=== PATIENT | male | born 1950 | race Caucasian/White ===

== ENCOUNTER 2017-05-09 05:52 | Inpatient (IN) ==
[2017-05-07 13:46] LABS: Basophils # 0.1 10*3/uL (0.0-0.2); Eosinophils # 0.1 10*3/uL (0.0-0.87); Eosinophils % 1.3 % (0.00-10.9); Hematocrit 48.4 VOL% (42.0-52.0); Hemoglobin 17.4 GM/DL (14.0-18.0); Immature Granulocytes % 0.5 %; Immature Granulocytes Absolute 0.04 #; Lymphocytes # 2.9 10*3/uL (1.4-4.0); Lymphocytes % 32.8 % (21.2-54.2); Mean Corpuscular Hemoglobin 32 PG (27-34); Mean Corpuscular Volume 88.6 FL (87-102); Mean Platelet Volume 9.5 FL (9.6-12.0); Monocytes # 0.6 10*3/uL (0.11-0.8); Monocytes % 7.1 % (1.7-12.7); Neutrophils % 57.3 % (38.7-73.9); Platelet Count 211 T/CUMM (130-400); Red Blood Count 5.46 MC/CUMM (3.8-5.5); Red Cell Distribution Width 12.9 % (9.3-17.3); White Blood Count 8.7 T/CUMM (4-12)
[2017-05-07 14:10] LABS: Calcium 8.7 MG/DL (8.5-10.1); Osmolality,Calculated 282.5 MOS/KG (273-304); Potassium 3.6 MMOL/L (3.5-5.1)
--- NOTE | 2017-05-07 14:13 | EKG Report ---
Stationary ECG Study [facility] Test Date: 05/07/2017 2:09:59 PM Pat Name: OLIVER DENT Department: Room: Gender: M Agricultural Agent: Merlyn 05-08-17 : 1950 Requested by: Salvatore Fernandez Order Number: [id number] Reading MD: JEMAL LORENZ Intervals [place] Rate: 76 P: 56 MN: 229 QRS: 4 QRSD: 133 T: 266 QT: 458 QTc: 488 Interpretive Statements SINUS RHYTHM WITH FIRST DEGREE AV BLOCK RIGHT BUNDLE BRANCH BLOCK T WAVE ABNORMALITY, POSSIBLE ANTEROLATERAL ISCHEMIA T WAVE ABNORMALITY, POSSIBLE INFERIOR ISCHEMIA Electronically Signed On 05-07-17 20:58:43 CDT by JEMAL LORENZ [email or web address]
--- NOTE | 2017-05-07 15:02 | XRay Report ---
2 view chest 05/07/2017 1:31 PM Indication: Preoperative examination Comparison: Not available Findings: Cardiomediastinal contours are normal. Small calcified granuloma within the right lung base. Lungs are otherwise clear. No acute osseous abnormalities. Visualized upper abdomen demonstrates no acute pathology. Impression: No acute cardiopulmonary findings PROCEDURE INTERPRETED AT [facility] DEPARTMENT OF RADIOLOGY Final Report Signed by: Pan Fajardo
--- NOTE | 2017-05-07 15:22 | XRay Report ---
History: Abdominal pain post sigmoidoscopy Date: 05/07/2017 Study: Flat and erect abdomen Comparison exam: No previous There is no evidence of pneumoperitoneum. The bowel is pattern is nonspecific without obstruction or gross mass lesion. There is a 7.7 mm nodular calcification overlying the lower right renal shadow as well as 3.8 mm calcification overlying the lower right renal shadow compatible with nephrolithiasis. There is mild to moderate lumbar spondylosis. Surgical clips overlie the right upper abdomen compatible with prior cholecystectomy. Impression: No evidence of pneumoperitoneum. Nonobstructive bowel gas pattern. Suspect bilateral nephrolithiasis PROCEDURE INTERPRETED AT [facility] DEPARTMENT OF RADIOLOGY Final Report Signed by: Dr. Angelica Joseph
[~2017-05-09 05:52] MED LIST: ALVIMOPAN 12 MG CAPSULE PO ONE
[2017-05-09] MEDS ORDERED: BUPIVACAINE MPF 0.25% /EPI 30 ML VIAL ONE (06:34)
[2017-05-09] MEDS ORDERED: LIDOCAINE 1%/EPI INJ 20 ML VIAL ONE (06:34)
[2017-05-09] MEDS ORDERED: ALVIMOPAN 12 MG CAPSULE ONE (06:38)
[2017-05-09] MEDS ORDERED: SODIUM CHLORIDE 0.9% 100 ML IV ONE (06:38)
[2017-05-09] MEDS: LACTATED RINGERS 1,000 ML IV SCH (07:00)
[2017-05-09] MEDS ORDERED: cefOXitin 1,000 MG in SODIUM CHLORIDE 0.9% 100 ML IV ONE (07:00)
[2017-05-09] MEDS ORDERED: GLYCOPYRROLATE 0.4 MG/2 ML VIAL ONE (07:08)
[2017-05-09] MEDS ORDERED: LIDOCAINE 100 MG/5 ML SYRINGE ONE (07:08)
[2017-05-09] MEDS ORDERED: PROPOFOL 200 MG/20 ML VIAL IV ONE (07:08)
[2017-05-09] MEDS ORDERED: KETOROLAC 30 MG/1 ML VIAL ONE (07:08)
[2017-05-09] MEDS ORDERED: NEOSTIGMINE 10 MG/10 ML VIAL ONE (07:08)
[2017-05-09] MEDS ORDERED: ONDANSETRON 4 MG/2 ML VIAL ONE (07:08)
[2017-05-09] MEDS ORDERED: LIDOCAINE 2% TOP JELLY 20 ML VIAL INTRAURETH ONE (07:35)
--- NOTE | 2017-05-09 07:45 | Urology Consultation ---
Assessment and Plan - Time spent with patient Time spent with patient: Less than 30 minutes (1) Acquired phimosis Status: Acute Assessment and plan: Wood catheter placed by urology. Maintain Wood catheter until patient is ambulatory, and medically indicated by general surgery. Patient can follow-up in my clinic if he would like circumcision. Please call with any concerns or questions. I will be happy to follow-up, otherwise I will not follow him. Current Visit: Yes History of Present Illness - Data of Consult Patient: new to practice Consult date: 05/09/17 Requesting Physician: Salvatore Fernandez III. - Consult Narrative History of present illness: Mr. Marie is a 66 year old male who is brought to the OR for planned colon resection. He is uncircumcised, and has phimosis. The nurse was unable to place the Wood catheter after considerable attempts. I was consulted for Wood catheter placement by Dr. Fernandez, as it is needed for his robotic procedure. No history is available from the patient, as he is intubated and prepped for surgery. History obtained from the nursing staff, and medical records. CC: Salvatore Fernandez III., Unable to Place Wood due to the tight foreskin - Home Medications and Allergies Home Medications: Home Medications Medication Instructions Recorded Confirmed Type Gabapentin 300 mg PO DIRECTED PRN 05/06/17 05/09/17 History Verapamil HCl [Verapamil ER Cap] 360 mg PO BEDTIME 05/06/17 05/09/17 History Insulin Lispro Prot/Lisp 50/50 75 unit SUBCUT BID 05/09/17 05/09/17 History [HumaLOG Mix 50/50] Allergies/Adverse Reactions: Allergies Allergy/AdvReac Type Severity Reaction Status Date / Time povidone-iodine AdvReac Verified 05/07/17 13:31 [From Betadine] soap [From Betadine] AdvReac Verified 05/07/17 13:31 Medical,Surgical,& Family Hx - Medical History Cardio: History of: Hypertension Neurology: History of: Peripheral Neuropathy (HANDS AND FEET.) No history of: Seizures HEENT: History of: Eye Problem (GLASSES) Endocrine: History of: Diabetes Mellitus (IDDM) Respiratory: History of: Obstructive Sleep Apnea (CPAP), Respiratory Problems ( FLU VAC-YES 2015; PNEU VAC- YES.) Renal: No history of: Renal Problems Genitourinary: History of: Kidney Stones, Prostate Problems (SLIGHTLY ENLARGED.) No history of: Bladder Problem Gastrointestinal: History of: Polyps, Gastrointestinal Cancer Musculoskeletal: History of: Back/Neck Problems (L5 ARTHRITIS) Hematology: No history of: Blood Transfusion Reaction Other: History of: Cancer (COLON CA.), MRSA (BILATERAL FEET.) No history of: Anesthesia Reactions - Surgical History Cardiac Surgeries: Patient Denies: Cardiac Catheterization HEENT Surgeries: Surgical HX of: Eye Surgery (LASER EYE SURGERY BILATERAL.), Tonsilectomy & Adenoidectomy Abdominal Surgeries: Surgical HX of: Appendectomy (?), Cholecystectomy, Colonoscopy, Hernia Repair (UMBILICAL HERNIA REPAIR) Patient denies: EGD Orthopedic Surgeries: Surgical HX of;: Orthopedic Surgery (LEFT ACHILIS REPAIR.) - Social History Smoking Status: Never smoker Frequency of Alcohol Use: None Type of Drug Use: None ROS unobtainable: due to endotracheal tube Exam - Constitutional Vitals: Period Temp Pulse Resp BP Sys/Townsend Pulse Ox Last 24 Hr 98.6 F 68 18 146/82 96 General appearance: no acute distress - Head Head exam: Present: normocephalic, atraumatic - ENT ENT exam: Present: other (ET tube in place) - Neck Neck exam: Present: normal inspection - Respiratory Respiratory exam: Present: other (Ventilated breath) - Cardiovascular Cardiovascular exam: Present: regular rate and rhythm, other (Normal sinus rhythm on monitor) - GI/Abdominal GI/Abdominal exam: Present: soft, other (Surgical scar noted) - Genitourinary Genitourinary: foreskin does not retract, other (5 myotic foreskin, unable to retract) - Extremities Exam Extremities exam: Present: normal capillary refill, other (SCDs in place) - Neurological Exam Neurological exam: Present: other (Paralyzed and sedated) - Psychiatric Psychiatric exam: Present: other (Paralyzed and sedated) - Skin Skin exam: Present: warm, dry Results - Labs CBC & BMP: 05/07/17 13:38 05/07/17 13:38 Lab Results: I have reviewed the past 24 hour labs Procedures - Catheter Insertion (Urinary) Does patient have: other (Phimosis) Prophylactic antibiotics given: Yes (Antibiotics for colon surgery) Bladder Scan/Ultrasound used before catheterization: No Type of catheter inserted: 2 way Catheter Angolan Size: 16 Catheter Balloon Size (mLs): 10 Topical anesthesia used: No Results: unable to pass, consulted (Able to Place Wood with manipulation of foreskin. Immediate drainage of clear urine after placement.), urine sent for UA/ C&S Patient tolerated procedure: well
[2017-05-09] MEDS ORDERED: ONDANSETRON 4 MG/2 ML VIAL IV PRN (10:55)
--- NOTE | 2017-05-09 10:55 | Operative Note ---
Date of procedure: 05/09/17 Pre-op diagnosis: Sigmoid colon cancer Post-op diagnosis: same Procedure: Robotic sigmoid colectomy with 28 mm stapled EEA anastomosis(22) 2. Complete mobilization of splenic flexure Findings and technique: After informed consent was obtained patient was brought the operating room placed in supine position. After successful induction of general anesthesia the patient was positioned in a modified lithotomy position in Johny stirrups his pressure points padded. A Wood catheter had to be inserted by urology because of phimosis. The abdomen and perineum were prepped and draped in usual sterile fashion and local anesthesia infiltrated in the right lower quadrant. An open technique was used in the peritoneal cavity in this patient who had had previous hernia repairs and is midline and no longer had an umbilicus. I entered the peritoneal cavity and inserted a Jamie cannula. With the laparoscope in place I inserted additional robotic ports in the mid right abdomen and right upper quadrant. All of this was done under direct camera vision. Patient was position with his left side tilted upwards and in some Trendelenburg. The robot was docked and adhesions between the omentum and the abdominal midline were taken down with careful dissection removing omentum adherent behind his previous hernia repair site. Once his large thick omentum was freed up it was retracted out of the pelvis. There were extensive adhesions between the sigmoid colon and the lateral abdominal wall. These adhesions were tediously taken down exposing the tattooed area at the mid sigmoid colon. I then mobilized the descending colon up to the level of the splenic flexure which was mobilized robotically. With the colon fully mobilized identified the left ureter and gonadal vessels and stayed medial to the structures. I dissected down into the pelvis to his peritoneal reflection which was very deep. I elected to transect the distal sigmoid in the pelvis probably about 10 cm past the tattooed area. The mesentery was dissected free and redundant skin folds of the colon straightened out which was very tedious in this patient. The colon was transected with a stapling device and the mesocolon was then divided with the vessel sealer gradually. This was very difficult because the patient's mesocolon was probably about 3 cm thick. Large amount of intra-abdominal fat and the patient's retroperitoneum and mesentery made all of the dissection much more difficult. The mesentery was divided taking the generous specimen of mesocolon especially proximal and adjacent to the polypectomy site and I dissected about 10 cm proximal to the polypectomy site in the mesentery. I then pulled the colon up through the right lower quadrant port site which was enlarged and a wound protector placed in the defect. The colon was pulled up into this location and I had marked the planned point of transection trickle poorly with a marking pen and we transected at this point with a pursestring device and scissors. The bowel appeared to be healthy and well-perfused at this point and a bullet from the EEA placed in the end of the bowel. The bowel was returned back into the peritoneal cavity and the right lower quadrant defect closed with running 0 Monocryl suture. Following this the EEA stapler was passed transanally. Prior to passing the stapler I passed a 25 and 28 mm sizer and then was able to pass the EEA. A 28 mm anastomosis was performed transanally and the EEA removed and there was no bleeding in the rectum and this was then leak tested under water and there was no bubbling with the colon and rectum distended with air. The anastomosis was coated with Tisseel tissue sealant. The anastomosis was under no tension and the bowel laid without any tension prior to doing the anastomosis in the pelvis with no resistance. A 10 mm KYLE drain was placed in the pelvis and the ports were removed and the incisions closed with skin clips. He appeared to tolerate the procedure well. This was a much more difficult procedure than usual because of the large amount of intra-abdominal fat and adhesions and previous hernia surgery which added to the complexity the case and essentially doubled the usual expected operative time. He had no apparent complications and appeared to tolerate procedure well. Anesthesia: GETA, local Surgeon / Physician: Salvatore Fernandez III. Full Stack Developer: Gonzalo Barrera Estimated blood loss: other (75 mL) Specimens: other (Sigmoid colon) Condition: stable Disposition: PACU Results - Labs CBC & BMP: 05/07/17 13:38 05/07/17 13:38 Discharge Plan - Discharge Medications No Action Gabapentin 300 mg PO DIRECTED PRN PRN Reason: NERVES Verapamil HCl [Verapamil ER Cap] 360 mg PO BEDTIME Insulin Lispro Prot/Lisp 50/50 [HumaLOG Mix 50/50] 75 unit SUBCUT BID - Follow Up or Referral - Forms/Instructions
[2017-05-09] MEDS ORDERED: DEXTROSE 50% 25 GM/50 ML SYRINGE IV PRN (10:59)
[2017-05-09] MEDS ORDERED: GLUCAGON 1 MG VIAL IM PRN (10:59)
[2017-05-09] MEDS ORDERED: SEVOFLURANE 1 UNIT/15 MINUTE INH ONE (11:12)
[2017-05-09] MEDS ORDERED: MIDAZOLAM 2 MG/2 ML VIAL ONE (11:13)
[2017-05-09] MEDS ORDERED: fentaNYL 100 MCG/2 ML VIAL ONE ×2 (11:13)
[2017-05-09 11:18] LABS: Apearance,Urine CLOUDY (Clear); Bacteria,Urine Moderate /HPF (Few); Bilirubin,Urine Negative (Negative); Blood, Urine Negative (Negative); Glucose,Urine (UA) 50 mg/dL (Negative); Ketones,Urine 20 mg/dL (Negative); Mucus,Urine Few /LPF (Occasional); Nitrite,Urine Negative (Negative); Protein,Urine >=500 MG/DL; Urine Color Yellow (Yellow); Urine Specific Gravity 1.014 (1.001-1.035); WBC,Urine 2 /HPF (0-6)
[2017-05-09] MEDS: INSULIN REGULAR 100 UNIT/ML SUBCUT SCH ×2 (12:50→17:18)
[2017-05-09] MEDS: DEXTROSE 5% LACTATED RINGERS 1,000 ML IV SCH (13:09)
[2017-05-09 13:32] LABS: Hematocrit 43.1 VOL% (42.0-52.0); Hemoglobin 15.6 GM/DL (14.0-18.0)
[2017-05-09] MEDS: MORPHINE 2 MG/1 ML SYRINGE IV PRN ×2 (16:43→21:02)
[2017-05-09 19:38] LABS: Hematocrit 42.1 VOL% (42.0-52.0); Hemoglobin 15.1 GM/DL (14.0-18.0)
[2017-05-09] MEDS: VERAPAMIL 360 MG PO SCH (20:53)
[2017-05-09] MEDS: ALVIMOPAN 12 MG CAPSULE PO SCH (20:53)
[2017-05-09] MEDS: ENOXAPARIN 40 MG/0.4 ML SYRINGE SUBCUT SCH (20:59)
[2017-05-10] MEDS: DEXTROSE 5% LACTATED RINGERS 1,000 ML IV SCH ×2 (01:05→08:37)
[2017-05-10] MEDS: INSULIN REGULAR 100 UNIT/ML SUBCUT SCH ×4 (01:05→17:59)
[2017-05-10] MEDS: MORPHINE 2 MG/1 ML SYRINGE IV PRN ×2 (04:57→20:39)
[2017-05-10 06:24] LABS: Hemoglobin 14.6 GM/DL (14.0-18.0)
[2017-05-10 06:25] LABS: Basophils % 0.4 % (0.0-0.8); Eosinophils % 0.3 % (0.00-10.9); Hematocrit 41.4 VOL% (42.0-52.0); Hemoglobin 14.5 GM/DL (14.0-18.0); Immature Granulocytes % 0.4 %; Immature Granulocytes Absolute 0.04 #; Lymphocytes # 1.7 10*3/uL (1.4-4.0); Lymphocytes % 18.6 % (21.2-54.2); Mean Corpuscular Hemoglobin 32 PG (27-34); Mean Corpuscular Volume 89.8 FL (87-102); Mean Platelet Volume 10.4 FL (9.6-12.0); Monocytes # 0.7 10*3/uL (0.11-0.8); Monocytes % 7.8 % (1.7-12.7); Neutrophils # 6.7 10*3/uL (1.4-7.4); Neutrophils % 72.5 % (38.7-73.9); Platelet Count 174 T/CUMM (130-400); Red Blood Count 4.61 MC/CUMM (3.8-5.5); Red Cell Distribution Width 12.9 % (9.3-17.3); White Blood Count 9.3 T/CUMM (4-12)
[2017-05-10 07:00] LABS: Calcium 8.6 MG/DL (8.5-10.1); Osmolality,Calculated 286.7 MOS/KG (273-304); Potassium 3.2 MMOL/L (3.5-5.1)
[2017-05-10] MEDS: PANTOPRAZOLE 40 MG TABLET PO SCH (08:34)
[2017-05-10] MEDS: LACTATED RINGERS 1,000 ML IV SCH (08:36)
[2017-05-10] MEDS: ALVIMOPAN 12 MG CAPSULE PO SCH ×2 (08:36→20:39)
--- NOTE | 2017-05-10 11:26 | Event Note ---
This patient is postoperative day #1 after robotic assisted laparoscopic sigmoid colectomy for malignant polyp in the sigmoid colon on 05/09/2017. He had no events overnight. He is tolerating full liquid diet with no nausea or vomiting. He has not passed gas or had a bowel movement yet. He denies any belching or nausea. He has not been I walk in the hallway yet. He still has a Wood catheter which was placed by urology for difficult cannulation from nursing in the perioperative period. We will remove his Wood catheter and Hep- Lock his IV fluids. Encourage ambulation and continue full liquid diet today. I offered the patient some regular food but he would like to continue full liquids for now. We will replete his potassium and repeat his chemistry in the morning. Discontinue Wood catheter and increase activity.
--- NOTE | 2017-05-10 12:42 | Anesthesia Post-Op ---
Anesthesia Post OP - Post Ansesthetic Evaluation Patient seen in post op: Yes Resp: within normal limits CV: within normal limits Mental: within normal limits Temp: within normal limits [id number]: within normal limits Nausea and Vomiting: within normal limits Pain: within normal limits
[2017-05-10] MEDS: POTASSIUM CHLORIDE RIDER 10 MEQ in PREMIX 1 EACH IV SCH ×6 (12:49→22:29)
[2017-05-10] MEDS: ENOXAPARIN 40 MG/0.4 ML SYRINGE SUBCUT SCH (20:39)
[2017-05-10] MEDS: VERAPAMIL 360 MG PO SCH (20:40)
[2017-05-11] MEDS: INSULIN REGULAR 100 UNIT/ML SUBCUT SCH ×4 (00:20→17:08)
[2017-05-11] MEDS: POTASSIUM CHLORIDE RIDER 10 MEQ in PREMIX 1 EACH IV SCH (01:13)
[2017-05-11 06:56] LABS: Calcium 8.6 MG/DL (8.5-10.1); Magnesium 1.8 MG/DL (1.8-2.4); Osmolality,Calculated 280.7 MOS/KG (273-304); Potassium 3.3 MMOL/L (3.5-5.1)
[2017-05-11 08:07] LABS: Basophils # 0.1 10*3/uL (0.0-0.2); Basophils % 0.7 % (0.0-0.8); Eosinophils # 0.1 10*3/uL (0.0-0.87); Eosinophils % 1.5 % (0.00-10.9); Hematocrit 39.7 VOL% (42.0-52.0); Hemoglobin 14.4 GM/DL (14.0-18.0); Immature Granulocytes % 0.4 %; Immature Granulocytes Absolute 0.03 #; Lymphocytes # 1.9 10*3/uL (1.4-4.0); Lymphocytes % 22.6 % (21.2-54.2); Mean Corpuscular HGB Conc 36.3 GM/DL (32-36); Mean Corpuscular Hemoglobin 33 PG (27-34); Mean Corpuscular Volume 89.6 FL (87-102); Mean Platelet Volume 10.3 FL (9.6-12.0); Monocytes # 0.7 10*3/uL (0.11-0.8); Monocytes % 8.3 % (1.7-12.7); Neutrophils # 5.5 10*3/uL (1.4-7.4); Neutrophils % 66.5 % (38.7-73.9); Platelet Count 166 T/CUMM (130-400); Red Blood Count 4.43 MC/CUMM (3.8-5.5); Red Cell Distribution Width 12.7 % (9.3-17.3); White Blood Count 8.2 T/CUMM (4-12)
--- NOTE | 2017-05-11 08:22 | Event Note ---
He feels well postoperative day #2. He is ambulating in the room and is actually had a small bowel movement and flatus. He has had no nausea or vomiting. He had low-grade temperature last night but has no abdominal pain. His abdomen appears benign and there is serosanguineous drainage in his KYLE drain. I suspect that his temperature is pulmonary in origin. I will recheck lab.
[2017-05-11 08:34] LABS: Calcium 8.6 MG/DL (8.5-10.1); Potassium 3.9 MMOL/L (3.5-5.1)
[2017-05-11] MEDS: PANTOPRAZOLE 40 MG TABLET PO SCH (08:40)
[2017-05-11] MEDS: ALVIMOPAN 12 MG CAPSULE PO SCH ×2 (08:40→21:12)
[2017-05-11] MEDS: MORPHINE 2 MG/1 ML SYRINGE IV PRN ×2 (09:29→15:06)
[2017-05-11] MEDS: ENOXAPARIN 40 MG/0.4 ML SYRINGE SUBCUT SCH (21:12)
[2017-05-11] MEDS: VERAPAMIL 360 MG PO SCH (21:12)
[2017-05-12] MEDS: INSULIN REGULAR 100 UNIT/ML SUBCUT SCH ×3 (00:03→11:53)
--- NOTE | 2017-05-12 06:58 | Event Note ---
He feels well. He had a normal bowel movement. He is tolerating liquids and has no nausea or vomiting. He is afebrile with stable vital signs and had a normal white blood cell count yesterday. We will advance his diet. He may be ready for discharge later today or tomorrow.
[2017-05-12] MEDS: ALVIMOPAN 12 MG CAPSULE PO SCH (09:22)
[2017-05-12] MEDS: PANTOPRAZOLE 40 MG TABLET PO SCH (09:22)
--- NOTE | 2017-05-12 11:16 | Discharge Summary ---
Hospital Course - Hospital Course Hospital Course: Patient is a 66-year-old male admitted for robotic sigmoid colectomy with complete mobilization of the splenic flexure due to sigmoid colon cancer. Urology consultation was obtained prior to surgery asked the nurse was unable to pass the Yeung catheter secondary to phimosis. Urology was able to manipulate the foreskin and place a Yeung catheter; recommendation to follow-up in the outpatient clinic to consider circumcision. Subsequently, the patient progressed with his oral intake appropriately and regaining bowel function with passing both flatus and bowel movement. He was voiding without difficulty postoperatively as well. He did have acute kidney injury which responded to IV fluids and normalization of his creatinine. Hyperkalemia was noted which also resolved. He was hyperglycemic much of this today, but his home medications were being held secondary to possible hypoglycemia and he was on sliding scale insulin. His home medications restarted and the patient reports blood glucose levels are well controlled in the 150s which she checks twice daily at home. His KYLE drain was discontinued on the day of discharge. He was provided with postoperative analgesics and follow-up appointments with Drs. Viveros and Jim. He was discharged home in good condition. Pathology pending at the time of discharge Diagnosis - Discharge Diagnosis (1) Cancer of sigmoid colon Status: Acute (2) Acute kidney injury Status: Acute (3) Hypokalemia Status: Acute (4) Hyperglycemia due to type 2 diabetes mellitus Status: Acute (5) Acquired phimosis Status: Acute Specialty Discharge - Follow Up or Referrals Follow up with: Salvatore Fernandez III., MD [Physician] - 05/26/17 10:00 am Cirilo Viveros MD [Physician] - 05/29/17 9:30 am (2-4 weeks to consider circumcision ) Discharge Plan - Discharge Data Disposition: Disch To Home/Self Care Condition at Discharge: Stable Discharge Diet: diabetic diet Activity: no lifting (> 10lb) Hygiene: may shower Contact your physician if you experience:: fever over 101, Difficulty voiding, Redness or swelling, Nausea/Vomiting, Shortness of breath, Bleeding, pain uncontrolled by pain medications Wound / Dressing Care Instructions: -KYLE drain site: keep dressing in place and dry x 48 hrs. -Surgical incisions: keep clean, dry and covered. -Do not soak or submerge wounds. Pat dry. - Discharge Medications New HYDROcodone/ACETAMIN 7.5-325 [[place]on 7.5-325] 1 tablet PO Q4H PRN #30 tablet PRN Reason: Pain Moderate To Severe (4-10) Continue Gabapentin 300 mg PO QID Verapamil HCl [Verapamil ER Cap] 360 mg PO BEDTIME Insulin Lispro Prot/Lisp 50/50 [HumaLOG Mix 50/50] 75 unit SUBCUT BID - Follow Up or Referral Follow Up: Salvatore Fernandez III., MD [Physician] - 05/26/17 10:00 am Cirilo Viveros MD [Physician] - 05/29/17 9:30 am (2-4 weeks to consider circumcision ) - Forms/Instructions Instructions: Phimosis (GEN), Colectomy (DC) Additional Discharge Instructions: Hospital f/u with PCP in 7-10 days regarding hyperglycemia. Exam - Constitutional Vitals: Period Temp Pulse Resp BP Sys/Townsend Pulse Ox Last 24 Hr 97.0 F-98.7 F 59-68 16-20 133-151/66-87 92-99 General appearance: no acute distress - Eye Eye exam: Absent: scleral icterus - Respiratory Respiratory exam: Present: clear to auscultation bilaterally - Cardiovascular Cardiovascular exam: Present: regular rate and rhythm - GI/Abdominal GI/Abdominal exam: Present: hypoactive bowel sounds, tenderness (appropriate p/ o tenderness about incisions; surgical incisions c/d/i), soft. Absent: distended, firm - Neurological Exam Neurological exam: Present: alert, oriented X3 - Psychiatric Psychiatric exam: Present: normal affect, normal mood - Skin Skin exam: Present: normal color Discharge Results Procedures and tests throughout hospitalization: 1. Robotic sigmoid colectomy with complete mobilization of splenic flexure for sigmoid colon cancer on 05/09/[address] Salvatore Fernandez 2. Pathology of above pending at time of discharge 3. Mobilization of foreskin for yeung catheter placement with Dr. Cirilo Viveros on 05/09/2017 Labs on day of discharge: Labs from last 24 hours 05/12/17 05/12/17 05/11/17 11:01 05:50 23:56 POC Glucose 301 H 198 H 196 H 05/11/17 16:46 POC Glucose 268 H - Imaging and Cardiology Procedure: Chest x-ray: image reviewed by me, report reviewed by me, KUB x-ray: image reviewed by me, report reviewed by me (bilateral nephrolithiasis incidentally noted) DS: Provider Date of admission: 05/09/17 10:55 Primary care physician: Juliana Henriquez Attending physician on admission: Salvatore Fernandez III., Consults: Urology Dr. Cirilo Viveros Discharging clinician: Ashanti Edward PA-C
[2017-05-12 16:05] VITALS: BP 130/71
--- NOTE | 2017-05-12 17:16 | Pathology Report from [facility] ---
[facility] ACCESSION # : [id number] PATIENT NAME : Oliver Dent. ORDERING DR : IESHA MONTOYA III, MD CLINICAL HX: Colon mass POST-OP DX: Same SPECIMEN INFO: #1 Sigmoid colon #2 Donuts GROSS DESCRIPTION: #1 Received fresh labeled with the patients name OLIVER DENT is a segment of colon (9.0 x 2.5 cm) with one end opened and the opposite end closed. Blue ink is present at the open end indicating the proximal margin. Opening the colon reveals an ulcerated area (0.5 x 0.3 cm) possibly representing a previous biopsy site which is marked with black dye and comes within 4.0 cm of the proximal margin and within 2.5 cm of the distal margins. Adjacent to the ulceration, are two additional possible biopsy sites, both of which come within 4.0 cm of the proximal margin. No distinct masses are grossly appreciated. Sections submitted: 1A proximal margin, 1B distal margin , 1C mesenteric margin, 1D ulceration, 1E and 1F possible biopsy site, 1G&1H- Possible lymph nodes.#2 Received fresh labeled with the patients name OLIVER DENT and #2 consists of two ring-shaped fragments of pink-alford mucosal tissue measuring 3.0 x 2.8 cm in aggregate. Spares Scheduler sections submitted in cassette #2. DIAGNOSIS FOR OLIVER DENT: #1 SIGMOID COLON, PARTIAL COLECTOMY: Benign colonic mucosa, negative for residual carcinoma (biopsy site present). Benign lymph nodes (0/10). COLLECTED DATE: 05/09/2017 [facility] REPORT DATE: 05/12/2017 ELECTRONICALLY SIGNED BY: Mary Tena M.D. 05/12/2017 - 12:07:22 [place]
[2017-05-12] MEDS ORDERED: INSULIN LISPRO SUBCUT SCH (21:00)
[2017-05-12] MEDS ORDERED: INSULIN LISPRO PROTAMINE SUBCUT SCH (21:00)
--- NOTE | 2017-05-13 11:17 | Pathology Report from [facility] ---
[facility] ACCESSION # : [id number] PATIENT NAME : Oliver Dent. ORDERING DR : IESHA MONTOYA III, MD CLINICAL HX: Colon mass POST-OP DX: Same SPECIMEN INFO: #1 Sigmoid colon #2 Donuts GROSS DESCRIPTION: #1 Received fresh labeled with the patients name OLIVER DENT is a segment of colon (9.0 x 2.5 cm) with one end opened and the opposite end closed. Blue ink is present at the open end indicating the proximal margin. Opening the colon reveals an ulcerated area (0.5 x 0.3 cm) possibly representing a previous biopsy site which is marked with black dye and comes within 4.0 cm of the proximal margin and within 2.5 cm of the distal margins. Adjacent to the ulceration, are two additional possible biopsy sites, both of which come within 4.0 cm of the proximal margin. No distinct masses are grossly appreciated. Sections submitted: 1A proximal margin, 1B distal margin , 1C mesenteric margin, 1D ulceration, 1E and 1F possible biopsy site, 1G&1H- Possible lymph nodes.#2 Received fresh labeled with the patients name OLIVER DENT and #2 consists of two ring-shaped fragments of pink-alford mucosal tissue measuring 3.0 x 2.8 cm in aggregate. Senior Director Of [employer] sections submitted in cassette #2. DIAGNOSIS FOR OLIVER DENT: #1 SIGMOID COLON, PARTIAL COLECTOMY: Benign colonic mucosa, negative for residual carcinoma (biopsy site present). Benign lymph nodes (0/10). COLLECTED DATE: 05/09/2017 [facility] REPORT DATE: 05/12/2017 SUPPLEMENTAL TEXT: #2 Colon donuts: Benign colonic mucosa, negative for tumor. SUPPLEMENTAL DATE: 05/13/2017 ELECTRONICALLY SIGNED BY: Mary Tena M.D. 05/12/2017 - 12:07:22 [place]
--- NOTE | 2017-05-13 18:17 | Pathology Report from [facility] ---
[facility] ACCESSION # : [id number] PATIENT NAME : Oliver Dent. ORDERING DR : IESHA MONTOYA III, MD CLINICAL HX: Colon mass POST-OP DX: Same SPECIMEN INFO: #1 Sigmoid colon #2 Donuts GROSS DESCRIPTION: #1 Received fresh labeled with the patients name OLIVER DENT is a segment of colon (9.0 x 2.5 cm) with one end opened and the opposite end closed. Blue ink is present at the open end indicating the proximal margin. Opening the colon reveals an ulcerated area (0.5 x 0.3 cm) possibly representing a previous biopsy site which is marked with black dye and comes within 4.0 cm of the proximal margin and within 2.5 cm of the distal margins. Adjacent to the ulceration, are two additional possible biopsy sites, both of which come within 4.0 cm of the proximal margin. No distinct masses are grossly appreciated. Sections submitted: 1A proximal margin, 1B distal margin , 1C mesenteric margin, 1D ulceration, 1E and 1F possible biopsy site, 1G&1H- Possible lymph nodes.#2 Received fresh labeled with the patients name OLIVER DENT and #2 consists of two ring-shaped fragments of pink-alford mucosal tissue measuring 3.0 x 2.8 cm in aggregate. Rehabilitation Center Manager sections submitted in cassette #2. DIAGNOSIS FOR OLIVER DENT: #1 SIGMOID COLON, PARTIAL COLECTOMY: Benign colonic mucosa, negative for residual carcinoma (biopsy site present). Benign lymph nodes (0/10). COLLECTED DATE: 05/09/2017 [facility] REPORT DATE: 05/12/2017 SUPPLEMENTAL TEXT: #2 Colon donuts: Benign colonic mucosa, negative for tumor. SUPPLEMENTAL DATE: 05/13/2017 ELECTRONICALLY SIGNED BY: Mary Tena M.D. 05/12/2017 - 12:07:22 [place]
== END 2017-05-12 16:35 | disposition home or self-care (01) | DRG 330 ==
LOC: N.OR 05:52 → N.SDSINP 05:54 → N.3E 12:15
PROVIDERS: ADMIT Surgery; ATTEND Surgery